=== PATIENT | male | born 1955 | race Caucasian/White ===

== ENCOUNTER → 2018-09-25 | Outpatient (CLI) | payer OTHER ==
--- NOTE | 2018-09-25 11:38 | PCVCIMAG ---
APPROVED REPORT Study performed: 09/25/2018 09:46:51 Exam: Stress Echocardiogram Indication: Hyperlipidemia, Hypertension Stress Nurse: Erinn Gross RN Status: routine Ht: 6 ft 2 in HR: 86 bpm BP: 128/84 mmHg Rhythm: NSR Medical History Medical History: HTN, Hyperlipidemia, Elevated calcium score Procedure The patient underwent an Exercise Stress Test using the Jamil Protocol. Blood pressure, heart rate, and EKG were monitored. An Echocardiogram was performed by dialysis biomed technician in four stages in quad fashion. At peak stress, four selected images were obtained and placed side by side with resting images for comparison. Stress Test Details Stress Test: Exercise stress testing was performed using a Jamil protocol. HR Resting HR: 86 bpmMax Heart Rate (APMHR): 157 bpm Max HR Achieved: 160 bpmTarget HR (85% APMHR): 133 bpm % of APMHR: 101 Recovery HR: 86 bpm HR response to stress: Normal HR response to stress BP Resting BP: 128/84 mmHg Max BP: 210/110 mmHg Recovery BP: 170/90 mmHg BP response to stress: Abnormal hypertensive response to stress. ECG Resting ECG: Sinus Rhythm Stress ECG: Sinus Rhythm Recovery ECG: Sinus Rhythm Clinical Reason for Termination: Maximal effort Exercise duration: 9 min 19 sec Highest Stage Achieved: Stage 4: 4.2 mph at 16% grade. Exercise capacity: 11.10 METs Overall Exercise Capacity for Age: Normal Pre-Stress Echo The resting Echocardiogram showed normal left ventricular contractility with an estimated Ejection Fraction of about 55-60%. Normal wall motion in all segments on baseline images. Post-Stress Echo The stress Echocardiogram showed normal left ventricular contractility with an estimated Ejection Fraction of about 60-65%. Normal augmentation of wall motion in all segments on post stress images. Clinical No clinical or ECG evidence for ischemia. Conclusion Clinical Response: Non-ischemic Exercise Capacity: Average Stress ECG Response: Non-ischemic Stress Echo Images: Non-ischemic The left ventricle is normal in size and wall thickness in both the rest and stress images. Other Information Study Quality: Adequate <Conclusion> The left ventricle is normal in size and wall thickness in both the rest and stress images.
== END | disposition home or self-care (01) ==
LOC: PCVCIMAG 09:52
PROVIDERS: ATTEND Internal Medicine Cardiovascular Disease
DX: I10 Essential (primary) hypertension (principal); E78.5 Hyperlipidemia, unspecified; E78.00 Pure hypercholesterolemia, unspecified; R93.1 Abnormal findings on diagnostic imaging of heart and coronary circulation; R06.02 Shortness of breath; Z82.49 Family history of ischemic heart disease and other diseases of the circulatory system
CPT/HCPCS: 93325; 93351